=== PATIENT | male | born 1960 | race Caucasian/White ===

== ENCOUNTER 2021-08-06 14:40 | Emergency (ER) | payer BC ==
[~2021-08-06] VITALS: Ht 167.6 cm; Wt 90.7 kg
--- NOTE | 2021-08-06 14:46 | NUR ---
PT BIBA [id number] "Was walking at work slipped on wet ground- Fell R Ankle injury +deformity ?Tib/Fib Fx Air Splint applied by medics" . Per pt "Glass door closed on pt's leg" Pt C/O RLE pain. Pt A/Ox4. Tolerating R/A well with no SOB.
[2021-08-06] MEDS ORDERED: MORPHINE SULFATE INJ 4 MG/ML DISP.SYRIN ONE (14:57)
[2021-08-06] MEDS ORDERED: ONDANSETRON HCL/PF 4 MG/2 ML VIAL ONE (14:57)
[2021-08-06] MEDS ORDERED: MORPHINE SULFATE INJ 2 MG/ML DISP.SYRIN IV ONE (15:00)
[2021-08-06] MEDS ORDERED: ONDANSETRON HCL/PF 4 MG/2 ML VIAL IVP ONE (15:00)
--- NOTE | 2021-08-06 15:03 | NUR ---
BOOKKEEPING MANAGER AT PT'S [facility]
[2021-08-06] MEDS ORDERED: PROPOFOL 20 ML IV ONE (15:10)
--- NOTE | 2021-08-06 15:18 | NUR ---
PT AGREED AND SIGNED CONSENT FOR CLOSED REDUCTION OF RIGHT ANKLE UNDER MODERATE SEDATION. EDUCATED PT ON RISKS VS BENEFITS.
--- NOTE | 2021-08-06 15:21 | NUR ---
PRE-OP CARE DONE. PT CONNECTED TO MONITOR AND POX. PT ON O2 VIA N/C TOLERATING AT 97% WITH NO SOB BP 152/82 P 89 RR 18 CORNELIA RT AND KALEY VICTORIA AT PT'S BEDSIDE
--- NOTE | 2021-08-06 15:24 | NUR ---
DR KALEY VICTORIA AT PT'S BEDSIDE FOR PROCEDURE: CLOSED REDUCTION OF RIGHT ANKLE UNDER MODERATE SEDATION. RT AT PT'S BEDSIDE. VSS. PT TOLREATED PROCEDURE WELL. ORTHO GLASS WRAPPED TO PT'S RLE.
--- NOTE | 2021-08-06 15:26 | NUR ---
POST OP: PT AWAKE AND TOLERATING R/A WELL WITH NO SOB. VSS. ALL NEEDS MET AT THIS TIME.
[2021-08-06] MEDS ORDERED: PROPOFOL 200 MG/20 ML VIAL IV ONE (15:30)
--- NOTE | 2021-08-06 15:31 | NUR ---
XRAY AT PT'S BEDSIDE
[2021-08-06] MEDS ORDERED: HYDR-3972 PO (16:05)
[2021-08-06] MEDS ORDERED: IBUP-1957 PO (16:05)
--- NOTE | 2021-08-06 16:33 | NUR ---
Patient discharged to home in stable condition. rx Written and verbal after care instructions given. Patient verbalizes understanding of instruction. Pt DC VIA W/C. PT waiting for CD of XRAY. CD Ordered rajwinder PT waiting in car for CD Mohini (daughter)
[2021-08-06 16:57] VITALS: BP 116/74
== END 2021-08-06 16:57 | disposition home or self-care (01) ==
LOC: ER 14:46
DX: S82.841A Displaced bimalleolar fracture of right lower leg, initial encounter for closed fracture (principal); S93.04XA Dislocation of right ankle joint, initial encounter; I10 Essential (primary) hypertension; E11.9 Type 2 diabetes mellitus without complications; W01.0XXA Fall on same level from slipping, tripping and stumbling without subsequent striking against object, initial encounter; Y93.89 Activity, other specified; Y92.89 Other specified places as the place of occurrence of the external cause; Y99.8 Other external cause status
CPT/HCPCS: 27810; 73610 ×2; 96374; 96375; 99152; 99285; J2270; J2405; J2704; J7040; G0500